=== PATIENT | male | born 1945 | race Caucasian/White ===

== ENCOUNTER 2022-05-19 08:35 | Inpatient (IN) ==
[2022-05-19] MEDS ORDERED: 0.9 % Sodium Chloride 1,000 ML ONE ×2 (08:53→10:34)
[2022-05-19] MEDS ORDERED: Heparin 1,000 UNITS/500 mL 1,500 ML ONE (10:33)
[2022-05-19] MEDS ORDERED: *HR* Heparin 10,000 UNIT/10 ML VIAL ONE (10:33)
[2022-05-19] MEDS ORDERED: Iopamidol - 370 200 ML INFUS..BTL ONE (10:34)
[2022-05-19] MEDS ORDERED: *HR* Rocuronium Bromide 50 MG/5 ML VIAL IVP ONE (12:04)
[2022-05-19] MEDS ORDERED: Lidocaine -MPF 2% 5 ML VIAL SQ ONE (12:04)
[2022-05-19] MEDS ORDERED: *HR* Propofol 200 MG/20 ML VIAL IVP ONE (12:04)
[2022-05-19] MEDS ORDERED: Ondansetron 4 MG/2 ML VIAL IVP ONE (12:04)
[2022-05-19] MEDS ORDERED: EPHEDrine 50 MG/ML VIAL IVP ONE (12:04)
[2022-05-19] MEDS ORDERED: Protamine Sulfate 50 MG/5 ML VIAL IVP ONE (12:46)
[2022-05-19] MEDS: Valsartan 80 MG TABLET PO SCH (17:09)
[2022-05-19] MEDS: DilTIAZem CD (24hr) 120 MG CAP.ER.24H PO SCH (18:02)
[2022-05-19] MEDS ORDERED: *HR* Warfarin 3 MG TABLET PO SCH (18:45)
[2022-05-19 21:01] LABS: INR 2.1; Prothrombin Time 23.1 Seconds (9.4-12.1)
[2022-05-19] MEDS ORDERED: Warfarin perPT PO PRN ×2 (21:21)
[2022-05-19] MEDS ORDERED: *HR* Warfarin 5 MG TABLET PO ONE (22:00)
[2022-05-19 23:00] VITALS: O2SAT 98
[2022-05-20 05:49] LABS: Basophils % 0.1 %; Hematocrit 50.4 % (37.5-50.1); Hemoglobin 16.6 g/dL (12.9-16.9); Immature Granulocytes % 0.3 % (0-4); Lymphocytes # 0.5 K/mcL (0.6-4.6); Lymphocytes % 4.4 %; Mean Corpuscular HGB Conc 32.9 g/dL (31.6-35.5); Mean Corpuscular Hemoglobin 31.1 pg (28.0-33.3); Mean Corpuscular Volume 94.4 fL (83.0-100.0); Mean Platelet Volume 11.1 fL (9.4-12.4); Monocytes # 0.3 K/mcL (0.0-1.3); Monocytes % 3.1 %; Neutrophils # 9.7 K/mcL (1.6-8.9); Platelet Count 183 K/mcL (140-400); Red Blood Count 5.34 M/mcL (4.19-5.50); Red Cell Distribution Width 12.6 % (11.5-14.5); Segmented Neutrophils % 92.1 %; White Blood Count 10.5 K/mcL (4.3-11.1)
[2022-05-20 05:56] LABS: INR 2.2; Prothrombin Time 23.9 Seconds (9.4-12.1)
[2022-05-20 06:17] LABS: Calcium 8.7 mg/dL (8.6-10.3); Potassium 4.7 mEq/L (3.5-5.1)
[2022-05-20] MEDS: DilTIAZem CD (24hr) 120 MG CAP.ER.24H PO SCH (08:00)
[2022-05-20] MEDS: Valsartan 80 MG TABLET PO SCH (08:00)
[2022-05-20 08:06] VITALS: BP 138/85; PULSE 98; TEMP 97.9
[2022-05-20] MEDS ORDERED: Multivit/Ca/Min/Fe/FA 1 TAB TABLET PO SCH (09:00)
[2022-05-20] MEDS ORDERED: Aspirin Enteric Coated 81 MG Tablet PO SCH (09:00)
[2022-05-20] MEDS ORDERED: DilTIAZem CD (24hr) 120 MG CAP.ER.24H PO SCH (09:00)
[2022-05-20] MEDS ORDERED: hydroCHLOROthiazide 25 MG TABLET PO SCH (09:00)
== END 2022-05-20 12:05 | disposition home or self-care (01) | DRG 274 ==
LOC: INVDIALAB 08:35 → 2NNU 16:45
PROVIDERS: ADMIT Internal Medicine Clinical Cardiac Electrophysiology; ATTEND Internal Medicine Clinical Cardiac Electrophysiology